=== PATIENT | male | born 1990 | race Caucasian/White ===

== ENCOUNTER 2023-02-17 07:34 | Inpatient (IN) | payer MEDICAID ==
[~2023-02-17] VITALS: Ht 177.8 cm; Wt 68.2 kg
[~2023-02-17 07:34] MED LIST: NOCURR
[2023-02-17] MEDS ORDERED: LORazepam 1 MG TABLET PO ONE (08:00)
[2023-02-17] MEDS ORDERED: HALOPERIDOL 5 MG TABLET PO ONE (08:00)
[2023-02-17 08:12] LABS: COVID AG,FIA SOURCE NASAL SWAB
[2023-02-17 08:15] LABS: BASOPHILS % (AUTO) 0.5 % (0.0-2.0); EOSINOPHILS % (AUTO) 0.8 % (1.0-6.0); HEMATOCRIT 40.3 % (41-53); HEMOGLOBIN 13.8 g/dL (13.5-17.5); LYMPHOCYTES % (AUTO) 26.1 % (22.0-44.0); MEAN CORPUSCULAR HEMOGLOBIN 31.8 pg (26.0-34.0); MEAN CORPUSCULAR HGB CONC 34.2 G/dL (31.0-37.0); MEAN CORPUSCULAR VOLUME 93 fL (80-100); MONOCYTES # (AUTO) 0.7 K/uL (0.1-1.0); MONOCYTES % (AUTO) 8.7 % (2.0-9.0); NEUTROPHILS # (AUTO) 4.8 K/uL (1.8-7.7); NEUTROPHILS % (AUTO) 63.9 % (40.0-70.0); PLATELET COUNT (AUTO) 270 K/uL (150-450); RED BLOOD CELL COUNT(AUTO) 4.34 MIL/uL (4.50-5.90); RED CELL DISTRIBUTION WIDTH 13.9 % (11.5-14.5); WHITE BLOOD COUNT (AUTO) 7.6 K/uL (4.5-11.0)
[2023-02-17 08:19] LABS: ANION GAP 7 mmol/L (8-16); CALCIUM, TOTAL 8.6 mg/dL (8.8-10.5); CARBON DIOXIDE 29 mmol/L (22-29); CHLORIDE 109 mmol/L (98-107); GLOMERULAR FILTR. RATE CALC > 60 mL/min (>60); GLUCOSE,RANDOM 84 mg/dL (70-110); POTASSIUM 3.5 mmol/L (3.5-5.1); SODIUM SERUM 145 mmol/L (136-145); UREA NITROGEN, BLOOD 12 mg/dL (7-18)
[2023-02-17 08:25] LABS: ALANINE AMINOTRANSFERASE 29 U/L (12-78); ALBUMIN 3.3 g/dL (3.4-5.0); ALKALINE PHOSPHATASE 55 U/L (46-116); ASPARTATE AMINOTRANSFERASE 43 U/L (15-37); BILIRUBIN,TOTAL 0.7 mg/dL (0.1-1.0); TOTAL PROTEIN, SERUM 5.8 g/dL (6.4-8.2)
[2023-02-17 08:30] LABS: ALCOHOL, BLOOD (SERUM) < 3 mg/dL (0-10)
[2023-02-17 08:46] LABS: SARS-COV2 (COVID) ANTIGEN,FIA Negative (Negative)
[2023-02-17] MEDS ORDERED: HALOPERIDOL 5 MG TABLET PO PRN (09:00)
[2023-02-17] MEDS ORDERED: ZOLPIDEM TARTRATE 10 MG TABLET PO PRN (09:00)
[2023-02-17] MEDS ORDERED: LORazepam 2 MG TABLET PO PRN (09:00)
[2023-02-17 13:26] VITALS: BP 134/87; PULSE 77; RESP 18; TEMP 97.9; O2SAT 100
[2023-02-17] MEDS ORDERED: INFLUENZA VIRUS VACCINE QVS 2023-24 (6MO+)/PF 60 MCG/0.5 ML SYRINGE IM. ONE (13:45)
[2023-02-17] MEDS: RisperiDONE 3 MG TABLET PO SCH (17:00)
[2023-02-17] MEDS: IBUPROFEN 600 MG TABLET PO PRN (20:50)
[2023-02-17 22:43] VITALS: BP 121/68; PULSE 81; RESP 18; TEMP 97.8; O2SAT 96
[2023-02-18] MEDS: IBUPROFEN 600 MG TABLET PO PRN (06:47)
[2023-02-18 07:47] VITALS: RESP 16; O2SAT 96
[2023-02-18] MEDS: RisperiDONE 3 MG TABLET PO SCH ×2 (08:27→17:00)
[2023-02-18 09:38] VITALS: BP 108/77; PULSE 74; RESP 16; TEMP 97.5; O2SAT 96
[2023-02-18 20:32] VITALS: BP 112/71; PULSE 72; RESP 16; TEMP 98.1
[2023-02-19 09:00] VITALS: BP 110/68; PULSE 70; RESP 17; TEMP 98; O2SAT 96
[2023-02-19] MEDS: RisperiDONE 3 MG TABLET PO SCH ×2 (09:00→16:45)
[2023-02-19 20:05] VITALS: BP 113/70; PULSE 70; RESP 18; TEMP 98.1
[2023-02-20 08:12] VITALS: BP 117/75; PULSE 69; RESP 17; TEMP 97.7; O2SAT 100
[2023-02-20] MEDS: RisperiDONE 3 MG TABLET PO SCH ×3 (08:20→16:03)
== END 2023-02-20 18:20 | disposition home or self-care (01) | DRG 751 ==
LOC: EMS 07:37 → B3A 11:31
PROVIDERS: ADMIT Psychiatry & Neurology Psychiatry; ATTEND Psychiatry & Neurology Psychiatry
DX: F29 Unspecified psychosis not due to a substance or known physiological condition (principal); F17.210 Nicotine dependence, cigarettes, uncomplicated; F41.9 Anxiety disorder, unspecified; G47.00 Insomnia, unspecified; K59.00 Constipation, unspecified; F32.9 Major depressive disorder, single episode, unspecified; Z20.822 Contact with and (suspected) exposure to COVID-19
CPT/HCPCS: 80053; 85025; 99285; G0480

== ENCOUNTER 2023-03-24 15:16 | Emergency (ER) | payer MEDICAID ==
[~2023-03-24] VITALS: Ht 175.3 cm; Wt 75.0 kg
[2023-03-24 15:20] VITALS: BP 156/95; PULSE 84; RESP 18; TEMP 98.2
== END 2023-03-24 17:00 | disposition left against medical advice (07) ==
LOC: EMS 15:16
DX: Z53.21 Procedure and treatment not carried out due to patient leaving prior to being seen by health care provider (principal)
CPT/HCPCS: 99281; Z7502